=== PATIENT | female | born 1990 ===

== ENCOUNTER 2018-11-04 17:48 | Inpatient (IN) | payer OTHER ==
[~2018-11-04] VITALS: Ht 157.5 cm; Wt 78.9 kg
== END 2018-11-06 14:05 | disposition home or self-care (01) | DRG 807 ==
LOC: OB/GYN 17:48 → LDR 17:48 → OB/GYN 22:50
PROVIDERS: ADMIT Obstetrics & Gynecology
PROC: 10E0XZZ Delivery of Products of Conception, External Approach (ICD-10-PCS; principal; 2018-11-04)
PROC: 0W8NXZZ Division of Female Perineum, External Approach (ICD-10-PCS; 2018-11-04)
PROC: 4A1HXCZ Monitoring of Products of Conception, Cardiac Rate, External Approach (ICD-10-PCS; 2018-11-04)
PROC: 4A033R1 Measurement of Arterial Saturation, Peripheral, Percutaneous Approach (ICD-10-PCS; 2018-11-04)
DX: O80 Encounter for full-term uncomplicated delivery (principal); Z37.0 Single live birth; Z22.330 Carrier of Group B streptococcus; Z3A.39 39 weeks gestation of pregnancy